=== PATIENT | female | born 1970 | race Caucasian/White ===

== ENCOUNTER 2022-05-05 15:00 | Outpatient (RCR) | payer BC, SELFPAY | END 2022-05-05 15:50 | disposition home or self-care (01) | LOC: HO.PT 15:00 | PROVIDERS: PCP Nurse Practitioner; Visit Provider Colon & Rectal Surgery | DX: M99.05 Segmental and somatic dysfunction of pelvic region (principal) | CPT/HCPCS: 97112; 97140; 97161 ==